=== PATIENT | female | born 1955 | race Caucasian/White ===

== ENCOUNTER → 2017-11-18 10:15 | Outpatient (CLI) | payer OTHER, SELFPAY ==
--- NOTE | 2017-11-18 10:22 | HPBI_ITS ---
MAMMOGRAPHY - BILATERAL SCREENING 3-D CARMEN SYNTHESIS REASON FOR EXAM: Female, 62 years old. Bilateral Screening 3-D tomosynthesis PERTINENT HISTORY: Asymptomatic. No significant family history. TECHNIQUE: 2-D mammograms and 3-D Carmen synthesis of the breast (s) were performed. CAD was performed. COMPARISON: None available. If prior mammograms become available, addendum can be placed after comparison. FINDINGS: The breast composition is composed of scattered fibroglandular density. Scattered benign calcifications are seen. No dense spiculated masses, abnormal microcalcification cluster, architectural distortion or dominant mass is identified. There is no adenopathy, skin thickening or nipple retraction. HPBI/SCREENING MAMM (CAD), BILAT IMPRESSION: No mammographic signs of malignancy. Routine yearly mammograms recommended. ASSESSMENT CATEGORY: BIRADS Category 2: Benign. A letter regarding these results will be sent to the patient by the facility within 30 days. FOLLOW UP RECOMMENDATION: Yearly follow up mammogram recommended. (A) Approximately 10% of breast cancers are not detected by mammography. A normal mammogram should not delay biopsy of a clinically suspicious abnormality. Electronically Signed: Aaron Mckeon, at 20:36 EDT Tel , Service support ,
== END ==
PROVIDERS: Visit Provider Surgery
DX: Z12.31 Encounter for screening mammogram for malignant neoplasm of breast (principal)
CPT/HCPCS: 77063; 77067

== ENCOUNTER → 2021-03-16 16:36 | Outpatient (CLI) | payer OTHER, SELFPAY ==
--- NOTE | 2021-03-16 16:50 | CT_ITS ---
INDICATION: HEMATURIA/UTI/HX STONES EXAMINATION: CT Abdomen And Pelvis W/O Contrast Injection TECHNIQUE: Helically acquired images were obtained of the abdomen and pelvis without the use of IV contrast. A radiation dose optimization technique was used for this scan. Oral contrast: None. COMPARISON: None FINDINGS: Evaluation of the solid organs and vascular structures is limited without intravenous contrast. Visualized lung bases: Unremarkable Liver: Unremarkable Gallbladder: Unremarkable Spleen: Unremarkable Pancreas: Unremarkable Adrenal Glands: Unremarkable Kidneys: Unremarkable Vasculature: Mild scattered aortoiliac atherosclerotic calcifications. GI Tract: Extensive diverticula throughout the colon without evidence of inflammation. Lymphadenopathy: None Peritoneum: No ascites. Bladder: Unremarkable Reproductive organs: Unremarkable Bones/Soft tissues: Mild scattered degenerative changes of the visualized spine. CT/Abdomen/Pelvis without Cont IMPRESSION: No acute abnormalities in the abdomen or pelvis. Specifically, no evidence of renal or ureteral stones. Diverticulosis. Electronically Signed: Roger Eldridge MD at 19:44 EDT Tel , Service support ,
== END ==
PROVIDERS: PCP Family Medicine; Referring Provider Urology; Visit Provider Urology
DX: N39.0 Urinary tract infection, site not specified (principal); R31.9 Hematuria, unspecified; Z87.442 Personal history of urinary calculi
CPT/HCPCS: 74176

== ENCOUNTER → 2022-04-09 | Outpatient (CLI) | payer OTHER, SELFPAY ==
--- NOTE | 2022-04-09 15:29 | CT_ITS ---
STUDY: CT ABDOMEN AND PELVIS WITH CONTRAST REASON FOR EXAM: Female, 67 years old. PAIN RADIATION DOSAGE (If Supplied By Facility): CTDIvol = ( 13.58 ) mGy, DLP = ( 633.80 ) mGycm TECHNIQUE: Transaxial images were obtained from the dome of the diaphragm to the symphysis pubis with oral contrast. Oral and amp; IV Readi-CAT and amp; 100mL Isovue-300 was administered. Sagittal and coronal images were reconstructed. Individualized dose optimization techniques were used for this CT. COMPARISON: 03/16/2021 FINDINGS: The visualized lung bases are unremarkable. The visualized portions of the heart are within normal limits. There is hepatomegaly with diffuse hepatic enlargement. Normal gallbladder and extrahepatic biliary system. Normal spleen. Normal pancreas. Normal bilateral adrenal glands. Normal right kidney. Normal left kidney. Normal visualized stomach. Normal small intestine. There are multiple colonic diverticula consistent with diverticulosis. The appendix is visualized and appears normal. There is diffuse atherosclerotic calcification of the abdominal aorta, without a demonstrated aneurysm. Normal inferior vena cava. Normal retroperitoneum. Normal urinary bladder. There is atrophy of the uterus. Partially calcified uterine fibroid. Normal abdominal wall. Normal osseous structures. CT/Abdomen/Pelvis WITH Contrast IMPRESSION: Mild hepatomegaly. Normal appearance of the appendix. Remainder is within normal limits. Electronically Signed: Francisco Quiros DO at 5:49 EDT ,
[2022-04-09 15:56] LABS: CREATININE FINGERSTICK < 0.9 mg/dL (0.55-1.02); EGFR FINGERSTICK > 60.0000 mL/min (>60)
== END | disposition home or self-care (01) ==
LOC: CT 15:25
PROVIDERS: PCP Family Medicine; Visit Provider Family Medicine
DX: R10.30 Lower abdominal pain, unspecified (principal); R31.9 Hematuria, unspecified
CPT/HCPCS: 74177; Q9967

== ENCOUNTER → 2022-04-26 | Outpatient (CLI) | payer OTHER, SELFPAY ==
--- NOTE | 2022-04-25 | FLU_PTH ---
PATIENT: ROSA HITCHCOCK LOC: [facility] U#:[id number] AGE/SX: 67/F ROOM: RE04/26/[address]: Dr. Bhavana Anderson MD : [id number] BED: DIS: 04/26/2022 SPEC #: [id number] RECD: 04/26/22 10:27 STATUS: GEORGIE REHollie #: [id number] BRENDAN: 04/25/22 00:[address]: Bhavana Anderson DEPT: CYTOLOGY RECD BY: Priscilla Guevara ENTERED: 04/26/22 11:28 SP TYPE: Fluid OTHR DR: Dr. Alec Oquendo MD Tissues: A - Thyroid gland, NOS B - Thyroid gland, NOS C - Thyroid gland, NOS D - Thyroid gland, NOS Procedures: Special Stain Group II Surgery Specimen Level IV Cytospin Fluid Cytology Other HEADER OPERATION: Ultrasound-guided fine needle aspiration left and right thyroid PRE-OP DIAGNOSIS: Enlarged thyroid glands TISSUE SUBMITTED: A ? Left thyroid FNA fluid, B - Left thyroid FNA x4 slides, C ? Right thyroid FNA fluid, D ? Right thyroid FNA x8 slides DIAGNOSIS CYTOLOGY A. Fine needle aspiration, left thyroid nodule (cytospin and cell block): Consistent with benign cyst contents. See comment. B. Fine needle aspiration, left thyroid nodule (smears): Negative for malignant cells. See comment. C. Fine needle aspiration, right thyroid nodule (cytospin and cell block): Macrophages consistent with benign cyst contents. See comment. D. Fine needle aspiration, right thyroid nodule (smears): Benign, consistent with benign follicular nodule ([place] Category II). See comment. AM:jaziel 04/30/2022 COMMENT A. Rare benign follicular cells are present admixed with macrophages. Clinical correlation is suggested. B. The specimen contains only blood. Follicular cells are not present. The paucicellularity precludes further evaluation. Clinical correlation is necessary. C. Rare benign follicular cells are present admixed with macrophages. Clinical correlation is suggested. D. The [place] System for thyroid diagnostic categorization was used in the evaluation of this case. The specimens are adequate for evaluation. The [place] System for thyroid diagnostic categorization was used in the evaluation of this case. Case has been reviewed in consultation with Dr. Terrell who concurs with the above diagnosis. IDC:[facility] CYTOLOGY STUDY Slides are reviewed. CYTOLOGY GROSS A - Received is 40 ml of brown cloudy fluid labeled with the patient's name and and designated per the requisition as left thyroid. Submitted for cytology preparation including cell block. B - Received are four smears labeled with the patient's name and designated per the requisition as left thyroid. Submitted for staining. C - Received is 35 ml of light brown cloudy fluid labeled with the patient's name and and designated per the requisition as right thyroid. Submitted for cytology preparation including cell block. D - Received are eight smears labeled with the patient's name and designated per the requisition as right thyroid. Submitted for staining. / jaziel 04/26/2022 TC:5 CPT: 53951 x4, 42043 x2
== END | disposition home or self-care (01) ==
LOC: LABSPEC 10:39
PROVIDERS: PCP Family Medicine; Referring Provider Surgery; Visit Provider Surgery
DX: E04.9 Nontoxic goiter, unspecified (principal)
CPT/HCPCS: 88108; 88161; 88305; 88313